=== PATIENT | female | born 1940 | race Asian ===

== ENCOUNTER 2018-02-10 23:08 | Emergency (ER) | payer MEDICARE, OTHER ==
[~2018-02-10] VITALS: Ht 139.7 cm; Wt 45.5 kg
[~2018-02-10 23:08] MED LIST: BP MED PO; CHOLESTEROL MED PO; INSULIN SQ
[2018-02-11 02:07] VITALS: BP 148/84
== END 2018-02-11 02:08 | disposition home or self-care (01) ==
LOC: EMS 23:09
DX: S92.511A Displaced fracture of proximal phalanx of right lesser toe(s), initial encounter for closed fracture (principal); I10 Essential (primary) hypertension; E11.9 Type 2 diabetes mellitus without complications; E78.00 Pure hypercholesterolemia, unspecified; Z79.4 Long term (current) use of insulin; W20.8XXA Other cause of strike by thrown, projected or falling object, initial encounter; Y93.89 Activity, other specified; Y92.89 Other specified places as the place of occurrence of the external cause; Y99.8 Other external cause status
CPT/HCPCS: 29280

== ENCOUNTER 2021-08-17 12:16 | Emergency (ER) | payer MEDICARE, OTHER ==
[~2021-08-17] VITALS: Ht 147.3 cm; Wt 59.1 kg
[2021-08-17] MEDS ORDERED: IBUP-2070 PO (14:27)
[2021-08-17 16:03] VITALS: BP 148/87
== END 2021-08-17 16:06 | disposition home or self-care (01) ==
LOC: EMS 12:16
DX: S20.211A Contusion of right front wall of thorax, initial encounter (principal); I10 Essential (primary) hypertension; E11.9 Type 2 diabetes mellitus without complications; E78.00 Pure hypercholesterolemia, unspecified; R07.1 Chest pain on breathing; W18.39XA Other fall on same level, initial encounter; Y93.89 Activity, other specified; Y92.89 Other specified places as the place of occurrence of the external cause; Y99.8 Other external cause status
CPT/HCPCS: 71046; 99283

== ENCOUNTER 2022-07-10 10:57 | Emergency (ER) | payer MEDICARE, OTHER ==
[~2022-07-10] VITALS: Ht 139.7 cm; Wt 40.9 kg
[~2022-07-10 10:57] MED LIST changes: +ASPI-1444 PO; +ATOR20TA65 PO; -BP MED PO; +CHOL25TA4 PO; -CHOLESTEROL MED PO; +GABA-1181 PO; +HYDR10TA31 PO; +INSU100I26 SQ; -INSULIN SQ; +LINA5TAB PO; +METF-283 PO; +METO-391 PO; +OS500 PO
[2022-07-10] MEDS ORDERED: HYDR25TA PO (11:01)
[2022-07-10] MEDS ORDERED: HYDR25TA84 PO (11:01)
[2022-07-10] MEDS ORDERED: NITR0.4T50 SL (11:01)
[2022-07-10] MEDS ORDERED: MONT-40 PO (11:01)
[2022-07-10] MEDS ORDERED: ACETAMINOPHEN 325 MG TABLET PO ONE (12:15)
[2022-07-10] MEDS ORDERED: SODIUM CHLORIDE 0.9% 1,000 ML IV ONE (12:15)
[2022-07-10] MEDS ORDERED: METF-446 PO (12:31)
[2022-07-10] MEDS ORDERED: FLUT110H IH (12:31)
[2022-07-10 12:48] LABS: HEMATOCRIT 34.7 % (36-46); HEMOGLOBIN 11.5 g/dL (12.0-16.0); MEAN CORPUSCULAR HEMOGLOBIN 31.7 pg (26.0-34.0); MEAN CORPUSCULAR HGB CONC 33.1 G/dL (31.0-37.0); MEAN CORPUSCULAR VOLUME 96 fL (80-100); PLATELET COUNT (AUTO) 230 K/uL (150-450); RED BLOOD CELL COUNT(AUTO) 3.61 MIL/uL (4.00-5.20); RED CELL DISTRIBUTION WIDTH 12.5 % (11.5-14.5)
[2022-07-10 12:50] LABS: ANION GAP 5 mmol/L (8-16); CALCIUM, TOTAL 9.8 mg/dL (8.8-10.5); CARBON DIOXIDE 32 mmol/L (22-29); CHLORIDE 97 mmol/L (98-107); CREATININE 0.89 mg/dL (0.60-1.30); GLOMERULAR FILTR. RATE CALC > 60 mL/min (>60); GLUCOSE,RANDOM 382 mg/dL (70-110); SODIUM SERUM 134 mmol/L (136-145); UREA NITROGEN, BLOOD 18 mg/dL (7-18)
[2022-07-10 13:04] LABS: BAND NEUTROPHILS % (MANUAL) 1 % (0-5); LYMPHOCYTES % (MANUAL) 19 % (22-44); MONOCYTES % (MANUAL) 2 % (2-9); SEGMENTED NEUTROPHILS % 78 % (40-70)
[2022-07-10] MEDS ORDERED: INSULIN REGULAR, HUMAN 100 UNITS/ML IVP ONE (13:30)
[2022-07-10 14:15] VITALS: BP 155/72
== END 2022-07-10 14:33 | disposition home or self-care (01) ==
LOC: EMS 11:00
DX: S09.90XA Unspecified injury of head, initial encounter (principal); F03.90 Unspecified dementia, unspecified severity, without behavioral disturbance, psychotic disturbance, mood disturbance, and anxiety; E11.65 Type 2 diabetes mellitus with hyperglycemia; E78.00 Pure hypercholesterolemia, unspecified; I10 Essential (primary) hypertension; W19.XXXA Unspecified fall, initial encounter; Y93.89 Activity, other specified; Y92.89 Other specified places as the place of occurrence of the external cause; Y99.8 Other external cause status
CPT/HCPCS: 99285; 96374; 70450; 96361; 80048; 82962; 85025; 36415; 93005; J1815